=== PATIENT | female | born 1980 | race African-American/Black ===

== ENCOUNTER 2019-09-27 04:58 | Day surgery (SDC) | payer BC ==
[2019-09-23 17:46] VITALS: BMI 27.1
[2019-09-27] MEDS ORDERED: ACETAMINOPHEN 325 MG TABLET (FP) PO PRN (08:46)
[2019-09-27] MEDS ORDERED: IBUPROFEN 400 MG TABLET (FP) PO PRN (08:46)
--- NOTE | 2019-09-27 08:46 | HP ---
History & Physical Update - History History: No Change - Physical Physical: No Change - Assessment Assessment: No Change - Plan Plan: No Change (No change in HP)
[2019-09-27] MEDS ORDERED: MIDAZOLAM HCL 2 MG/2 ML SINGLE DOSE VIAL ONE (10:06)
[2019-09-27] MEDS ORDERED: oxyCODONE HCL 5 MG TABLET PO PRN (11:27)
[2019-09-27] MEDS ORDERED: ONDANSETRON 4 MG/2 ML VIAL IVPUSH PRN (11:27)
[2019-09-27] MEDS ORDERED: LACTATED RINGERS SOLUTION 1,000 ML IV SCH (11:30)
--- NOTE | 2019-09-27 12:29 | OP ---
Operative Note - Note: Operative Date: 09/27/19 Pre-Operative Diagnosis: Endometrial polyps Operation: Hysteroscopic myomectomy. Suction DC Post-Operative Diagnosis: Same as Pre-op Anesthesia: General Estimated Blood Loss (mls): 5
[2019-09-27] MEDS ORDERED: IBUPROFEN 400 MG TABLET (FP) PO ONE (13:30)
[2019-09-27 14:31] VITALS: BP 106/63; PULSE 60; TEMP 98
--- NOTE | 2019-09-28 16:48 | PATH ---
Surgical Pathology Report Patient Name: LENY HERNANDEZ [facility] [place]. Rec. #: [id number] /Age/Gender: 1980 (Age: 39) / F Account: [id number] Location: [facility] SURGICAL Taken: 09/27/2019 Received: 09/27/2019 Reported: 09/28/2019 Physicians: Danette Ge M.D. Specimen(s) Received A: ENDOMETRIAL CURETTINGS B: POLYP, CERVICAL ENDOMETRIAL Clinical History Endometrial polyp Final Diagnosis A. ENDOMETRIAL CURETTINGS: FRAGMENTS OF SECRETORY TYPE ENDOMETRIUM. B. ENDOMETRIAL POLYP, EXCISION: FRAGMENTS OF ENDOMETRIAL POLYP. SEPARATE SECRETORY TYPE ENDOMETRIUM. Electronically Signed Rajesh Ayala M.D. Gross Description A. Received in formalin labeled "endometrial curetting," is a 1.0 x 0.8 x 0.2 cm aggregate of dickey-brown soft tissue fragments. The formalin is filtered and the specimen is entirely submitted in one cassette. B. Received in formalin labeled "endometrial polyp," is a 0.9 x 0.7 x 0.2 cm aggregate of dickey-brown soft tissue fragments. The formalin is filtered and the specimen is entirely submitted in one cassette. /09/27/2019 saudi09/27/2019
--- NOTE | 2019-10-01 06:35 | OP ---
DATE OF OPERATION: 09/27/2019 PREOPERATIVE DIAGNOSIS: Endometrial polyps. OPERATION: Hysteroscopic myomectomy, suction dilation and curettage. POSTOPERATIVE DIAGNOSIS: Endometrial polyps. SURGEON: Danette Ge MD ANESTHESIA: General. ESTIMATED BLOOD LOSS: 5 mL. PROCEDURE: Patient was taken to the operating room, placed in the dorsal lithotomy position, prepped and draped in the usual sterile fashion. Timeout was performed in accordance with hospital regulation. Speculum placed in vagina. Anterior lip of the cervix grasped with single-tooth tenaculum. Cervix was then dilated to accommodate the operative hysteroscope. Visualization revealed numerous polyps. Cautery and cutting of the polyps were then done. Then suction D&C was then performed. All instruments were then removed. Patient had tolerated procedure well. Estimated blood loss 5 mL. DANETTE GE M.D. [id number]
== END 2019-09-27 15:47 | disposition home or self-care (01) ==
LOC: JASU-SURG 04:58
PROVIDERS: ATTEND Obstetrics & Gynecology
PROC: 0UJD8ZZ Inspection of Uterus and Cervix, Via Natural or Artificial Opening Endoscopic (ICD-10-PCS; 2019-09-27)
PROC: 0UB97ZX Excision of Uterus, Via Natural or Artificial Opening, Diagnostic (ICD-10-PCS; principal; 2019-09-27 11:00)
PROC: 0UDB7ZX Extraction of Endometrium, Via Natural or Artificial Opening, Diagnostic (ICD-10-PCS; 2019-09-27 11:00)
DX: N84.0 Polyp of corpus uteri (principal)
CPT/HCPCS: 36415; 84703; 86850; 86900; 86901; 88305-TC; 94760

== ENCOUNTER 2022-12-23 03:48 | Day surgery (SDC) | payer BC ==
[2022-12-19 08:56] VITALS: BMI 28.5
[2022-12-23 07:07] VITALS: RESP 18
[2022-12-23] MEDS ORDERED: SUCCINYLCHOLINE CHLORIDE 200 MG/10 ML SYRINGE ONE (07:23)
[2022-12-23] MEDS ORDERED: PROPOFOL 20 ML ONE (07:23)
[2022-12-23] MEDS ORDERED: MIDAZOLAM HCL 2 MG/2 ML SINGLE DOSE VIAL ONE (07:23)
[2022-12-23] MEDS ORDERED: ACETAMINOPHEN 325 MG TABLET (FP) PO PRN (07:56)
[2022-12-23] MEDS ORDERED: IBUPROFEN 400 MG TABLET (FP) PO PRN (07:56)
[2022-12-23] MEDS ORDERED: DEXAMETHASONE SOD PHOSPHATE 4 MG/1 ML VIAL ONE (08:15)
[2022-12-23] MEDS ORDERED: ONDANSETRON 4 MG/2 ML VIAL ONE (08:15)
[2022-12-23] MEDS ORDERED: KETOROLAC TROMETHAMINE 30 MG/1 ML VIAL ONE (08:15)
[2022-12-23] MEDS ORDERED: oxyCODONE HCL 5 MG TABLET PO PRN ×2 (08:40→08:45)
[2022-12-23] MEDS ORDERED: ONDANSETRON 4 MG/2 ML VIAL IVPUSH PRN (08:40)
[2022-12-23] MEDS ORDERED: LACTATED RINGERS SOLUTION 1,000 ML IV SCH (08:45)
[2022-12-23 10:33] VITALS: PULSE 72
[2022-12-23 10:48] VITALS: BP 113/69; TEMP 97.8
== END 2022-12-23 11:07 | disposition home or self-care (01) ==
LOC: JASU-SURG 03:48
PROVIDERS: ATTEND Obstetrics & Gynecology
PROC: 0UB98ZZ Excision of Uterus, Via Natural or Artificial Opening Endoscopic (ICD-10-PCS; principal; 2022-12-23 07:30)
DX: N84.0 Polyp of corpus uteri (principal)
CPT/HCPCS: 81025; 88305-TC; 94760